=== PATIENT | male | born 1930 | race Caucasian/White ===

== ENCOUNTER 2016-12-28 18:16 | Inpatient (IN) | payer MEDICARE, OTHER ==
[~2016-12-28] VITALS: Ht 167.6 cm; Wt 56.2 kg
[2016-12-28 19:22] LABS: HEMOGLOBIN 13.7 gm/dl (14.0-17.5); RED BLOOD COUNT 4.28 M/UL (4.20-5.50); WHITE BLOOD COUNT 17.8 K/UL (4.5-11.0)
[2016-12-29] MEDS ORDERED: LIPITOR TAB 2020 MG PO (04:34)
[2016-12-29] MEDS ORDERED: ASPIRIN EC81 MG PO (04:37)
[2016-12-29] MEDS ORDERED: AMITIZA 24 MCG24 MCG PO (04:37)
[2016-12-29] MEDS ORDERED: IMDUR ER TAB 3030 MG PO (04:39)
[2016-12-29] MEDS ORDERED: DONEPEZIL HCL5 MG PO (04:39)
[2016-12-29] MEDS ORDERED: LEVEMIR FL100 UNIT/1 SC (04:40)
[2016-12-29] MEDS ORDERED: LISINOPRIL2.5 MG PO (04:40)
[2016-12-29] MEDS ORDERED: MEGACE SUSP40 MG/M1 PO (04:41)
[2016-12-29] MEDS ORDERED: METOPROLOL SUCC25 MG PO (04:42)
[2016-12-29] MEDS ORDERED: MULTIVITAMINS1 EAC1 PO ×2 (04:42→04:43)
[2016-12-29] MEDS ORDERED: ZYLOPRIM 100 M100 MG PO (04:43)
[2016-12-29] MEDS ORDERED: DEPAKOTE125 MG PO (04:44)
[2016-12-29] MEDS ORDERED: NEURONTIN 300300 MG PO (04:44)
[2016-12-29] MEDS ORDERED: TYLENOL 500 MG500 MG PO ×2 (04:45)
[2016-12-29] MEDS ORDERED: ACETAMINOPHEN-1 EAC1 PO (04:46)
[2016-12-29] MEDS ORDERED: BISCOLAX10 MG PR (04:49)
[2016-12-29] MEDS ORDERED: COLCRYS0.6 MG PO (04:50)
[2016-12-29] MEDS ORDERED: LACTULOSE10 GM/15 M PO (04:51)
[2016-12-29] MEDS ORDERED: SODIUM CHLORIDE3 ML INH (04:55)
[2016-12-29] MEDS ORDERED: NOVOLOG 10100 UNITS1 SC (04:56)
[2016-12-29] MEDS ORDERED: MAGIC BUTT CREAM TP (04:58)
[2016-12-29 05:45] LABS: HEMOGLOBIN 11.7 gm/dl (14.0-17.5)
[2016-12-29 08:20] LABS: HEMOGLOBIN 12.5 gm/dl (14.0-17.5); RED BLOOD COUNT 3.93 M/UL (4.20-5.50); WHITE BLOOD COUNT 19.3 K/UL (4.5-11.0)
[2016-12-29 12:37] LABS: HEMOGLOBIN 9.5 gm/dl (14.0-17.5)
[2016-12-29 16:11] LABS: HEMOGLOBIN 8.6 gm/dl (14.0-17.5)
== END 2016-12-29 22:50 | disposition expired | DRG 871 ==
LOC: ER1 18:16 → ZEROF 12-29 01:13 → CCU 12-29 04:35
PROVIDERS: Emergency Medicine; Family Medicine; Internal Medicine Nephrology; Internal Medicine Pulmonary Disease; ADMIT Emergency Medicine
PROC: 5A1935Z Respiratory Ventilation, Less than 24 Consecutive Hours (ICD-10-PCS; principal; 2016-12-29)
DX: A41.9 Sepsis, unspecified organism (principal); R65.21 Severe sepsis with septic shock; J18.9 Pneumonia, unspecified organism; J96.01 Acute respiratory failure with hypoxia; I21.4 Non-ST elevation (NSTEMI) myocardial infarction; N17.9 Acute kidney failure, unspecified; E87.2 Acidosis; E87.1 Hypo-osmolality and hyponatremia; I95.9 Hypotension, unspecified; Z51.5 Encounter for palliative care; Z66 Do not resuscitate; E87.5 Hyperkalemia; I45.10 Unspecified right bundle-branch block; I25.10 Atherosclerotic heart disease of native coronary artery without angina pectoris; Z95.1 Presence of aortocoronary bypass graft; E11.65 Type 2 diabetes mellitus with hyperglycemia; R19.5 Other fecal abnormalities; I10 Essential (primary) hypertension; E11.40 Type 2 diabetes mellitus with diabetic neuropathy, unspecified; R00.0 Tachycardia, unspecified; F03.90 Unspecified dementia, unspecified severity, without behavioral disturbance, psychotic disturbance, mood disturbance, and anxiety; Z95.5 Presence of coronary angioplasty implant and graft; M19.90 Unspecified osteoarthritis, unspecified site; E78.5 Hyperlipidemia, unspecified; M10.9 Gout, unspecified; F32.9 Major depressive disorder, single episode, unspecified; F41.9 Anxiety disorder, unspecified; Z88.6 Allergy status to analgesic agent; Z79.82 Long term (current) use of aspirin; Z79.899 Other long term (current) drug therapy; N18.3 Chronic kidney disease, stage 3 (moderate); M60.9 Myositis, unspecified; D72.829 Elevated white blood cell count, unspecified; D75.89 Other specified diseases of blood and blood-forming organs; E86.0 Dehydration; R68.0 Hypothermia, not associated with low environmental temperature; Z91.89 Other specified personal risk factors, not elsewhere classified; Z79.4 Long term (current) use of insulin; D64.9 Anemia, unspecified; R11.10 Vomiting, unspecified; R19.7 Diarrhea, unspecified; R10.9 Unspecified abdominal pain
CPT/HCPCS: ECHO; 31500; 36415; 36600; 70450; 71010; 80048; 80053; 80076; 81001; 82009; 82272; 82330; 82436; 82550; 82553; 82607; 82746; 82803; 82962; 83605; 83690; 83735; 83880; 84100; 84133; 84300; 84439; 84443; 84484; 85014; 85018; 85025; 85610; 85730; 87040; 87086; 93005; 93306; 93970; 94002; 94640; 94660; 94664; 96361; 96374; 96375; 99291; C1751; C9113; J1720; J1956; J2250; J2370; J2543; J3370; J7030; J7040; J7050; P9047